=== PATIENT | male | born 1935 | race Caucasian/White ===

== ENCOUNTER → 2017-04-16 | Outpatient (CLI) | payer MEDICARE | LOC: RAD 07:31 | PROVIDERS: ATTEND Specialist | DX: C34.31 Malignant neoplasm of lower lobe, right bronchus or lung (principal); K57.30 Diverticulosis of large intestine without perforation or abscess without bleeding; M47.894 Other spondylosis, thoracic region | CPT/HCPCS: 71260; 74160 ==